=== PATIENT | female | born 1955 | race Caucasian/White ===

== ENCOUNTER 2018-09-26 20:04 | Emergency (ER) | payer SELFPAY, OTHER ==
[2018-09-26] MEDS: PHENYLephrine 0.5% 15 ML NAS SPRAY NASAL (23:25)
== END 2018-09-27 00:21 | disposition home or self-care (01) ==
LOC: E/R 09-27 00:21
DX: R04.0 Epistaxis (principal); I10 Essential (primary) hypertension; E11.9 Type 2 diabetes mellitus without complications; Z79.84 Long term (current) use of oral hypoglycemic drugs
CPT/HCPCS: 99282